=== PATIENT | male | born 1965 | race Caucasian/White ===

== ENCOUNTER 2016-11-08 11:06 | Inpatient (IN) | payer OTHER ==
--- NOTE | ~2016-11-08 | PA ---
Unit #: [id number] #: [id number] Patient: SHY MARINO [id number] [facility] [address] [place] [address] [id number] MR#: [id number] NAME: SHY MARINO ROOM: P174 Age: 51 Sex: M Admission Date: 11/08/2016 : 1965 Date of Assessment: 11/08/2016 Attending Physician: Eldon Camilo M.D. Admitting Physician: Eldon Camilo M.D. Primary Care Physician: Generic Doctor Not In System PSYCHIATRIC ASSESSMENT IDENTIFYING INFORMATION The patient is a 51-year-old white male admitted to the [address] [place] [address] for alcohol detox. INFORMANT(S) Patient. RELIABILITY Fair. CHIEF COMPLAINT Detox. HISTORY OF PRESENT ILLNESS The patient is a 51-year-old white male admitted after he had been found down at his apartment at the [facility]. The patient reports that he has been drinking half gallon of vodka on a daily basis and has been doing so for some time. He has an extensive substance abuse history, specifically alcohol. He has maintained sobriety for as many as 6 months but only while incarcerated. The patient reports approximately 5 years ago he lost his home and family and has been homeless and drinking ever since. His last stay at this hospital was in July 2015. He currently denies suicidal/homicidal ideation but is noted to be in extreme physical distress related to alcohol withdrawal. He is tremulous, flushed with elevation in pulse and blood pressure. His blood alcohol on admission at this facility yesterday was 325. He was sent out for medical clearance. PAST PSYCHIATRIC HISTORY As above. FAMILY HISTORY Noncontributory. SOCIAL HISTORY The patient currently resides at the [facility]. He is unemployed and is seeking disability. He reports substance use as noted previously. MEDICAL HISTORY Noncontributory. MEDICATION HISTORY None. Unit #: [id number] #: [id number] Patient: SHY MARINO ALLERGIES None. MENTAL STATUS EXAM At this time reveals the patient to be a disheveled white male appearing stated age. He is in significant physical distress and is noted to be quite tremulous and flushed during interview. He is awake, alert in all spheres. His mood is mildly dysphoric. His affect constricted. Speech is generally relevant and coherent. There are no gross deficits in memory or cognition noted. Intelligence is judged to be in the average range based on fund of knowledge. The patient is cooperative throughout the interview. He is currently denying suicidal/homicidal ideation or psychotic features. Judgement and insight appear to be intact. ASSETS AND LIABILITIES Patient's assets, motivation for change. Liabilities, lack of resources, chronicity of substance use. ADMITTING DIAGNOSIS Alcohol use disorder. PSYCHIATRIC PLAN/TREATMENT GOALS The patient remains hospitalized for safety and stabilization. Routine detoxification protocol for alcohol will be initiated. The patient will participate in appropriate palomino and milieu activities. DISCHARGE PLANNING Followup to take place through the auspices of community mental health resources. ESTIMATED LENGTH OF STAY Five to seven days. Dictated by... Eldon Camilo M.D. RIC/saulo TD: 11/08/2016 16:21 JOB #: [id number] PSYCHIATRIC ASSESSMENT Page 1 of 1 X Eldon Camilo MD X PSYCHIATRIC ASSESSMENT
--- NOTE | ~2016-11-08 | A ---
[facility] Nutrition Therapy DATE: 11/10/16 Patient: SHY MARINO Physician: OMAR Address: [address] [place] [address] #4 Room/Bed: [address], Zip: [place] [address] Admit Date: 11/08/16 Date of : [birth year] Height: 6 0 Weight: [phone] NUTRITIONAL ASSESSMENT: REASON: 2 NUTRITION RISK POINTS- UNINTENTIONAL WEIGHT LOSS, CHEWING/SWALLOWING DIFFICULTIES PATIENT ADMITTED FOR ETOH DETOX PMH: COPD, LONG HX ETOH ABUSE Anthropometrics: HT: 6'0", WT: 210#, BMI: 28.5, %IBW: 118 Labs: 11/09/16- BUN: 8, CREA: 0.5 Meds: DESYREL, DETOX PROTOCOL Assessment: PATIENT IS A 51 Y/O MALE ADMITTED FOR ETOH DETOX. PATIENT IS CURRENTLY UNEMPLOYED, LIVES AT THE [facility], SMOKES 2 PPD, AND DRINKS A 1/2 GALLON ETOH DAILY. PATIENT HAS A HX OF INPATIENT CHEMICAL DEPENDENCY TREATMENT. PATIENT STATED A POOR APPETITE WITH A 40# WEIGHT LOSS OVER LAST SEVERAL MONTHS. WEIGHT HX PER [employer] SHOWS A 10# WEIGHT LOSS OVER LAST 1.5 YEARS AND HIS UBW SEEMS TO BE AN AVERAGE OF ~210#. NURSING REPORTS GOOD PO INTAKES. PATIENT'S BMI IS ABOVE A HEALTHY RANGE OF 19-25, AND HE IS 118% OF HIS IBW. PATIENT IS ON A REGULAR DIET WITH NO DAIRY AND NO CAFFEINE. THERE ARE NO SKIN OR GI ISSUES NOTED ATT. PATIENT DOES NOT HAVE A HX OF CHEWING/SWALLOWING DIFFICULTIES, HE DOES NOT HAVE ANY C/O CHEWING/SWALLOWING DIFFICULTIES, AND HE IS TOLERATING A REGULAR DIET. Dx: NO NUTRITION DX Intervention: REGULAR DIET WITH NO DAIRY AND NO CAFFEINE, MEDS PER MD, PSYCH, DETOX Monitoring, Evaluation and Goals: 1. ADEQUATE PO INTAKES >50% OF MEALS 2. PREVENT, CORRECT MICRO/MACRO NUTRIENT DEFICIENCIES MONITOR: WEIGHTS, LABS, PO/FLUID INTAKES Recommendations: 1. CONTINUE REGULAR DIET WITH NO CAFFEINE AND NO DAIRY TOLERATED. 2. ENCOURAGE ADEQUATE PO AND FLUID INTAKES 3. IF PATIENT HAS C/O CHEWING/SWALLOWING DIFFICULTIES PLEASE CONSULT WINE CONSULTANT [facility] Nutrition Therapy DATE: 11/10/16 Patient: SHY MARINO Physician: OMAR Address: [address] [place] [address] #4 Room/Bed: P174-[address] [facility], Zip: [place] [address] Admit Date: 11/08/16 Date of : [birth year] Height: 6 0 Weight: [phone] TO F/U PER PROTOCOL AND PRN R/T PATIENT NOT AT NUTRITIONAL RISK ATT Respectfully, MARLEE CORBIN RD, LD [facility] cc: client file
--- NOTE | ~2016-11-08 | HP ---
Unit #: [id number] #: [id number] Patient: SHY MARINO [id number] [place] [address] [id number] MR#: [id number] NAME: SHY MARINO ROOM: P174 Age: 51 Sex: M Admission Date: 11/08/2016 : 1965 Attending Physician: Eldon Camilo M.D. Admitting Physician: Eldon Camilo M.D. Primary Care Physician: Jennifer Doctor Not In System HISTORY AND PHYSICAL HISTORY OF PRESENT ILLNESS Shy is a 51 year old admitted to [facility] because of his abuse of alcohol. He is detoxing. He has other admissions to this facility for treatment of the same. PAST MEDICAL HISTORY 1. Long history alcohol abuse. 2. COPD PAST SURGICAL HISTORY Left knee. ALLERGIES No known drug allergies. SOCIAL HISTORY Smokes less than one pack per day. Drinks a half of a gallon of vodka on a daily basis and denies illicit drug use. FAMILY HISTORY Medically noncontributory. REVIEW OF SYSTEMS CONSTITUTIONAL: No fever or chills. HEENT: Denies any sore throat, ear pain or runny nose. CARDIOVASCULAR: Denies chest pain, irregular heart rhythm or palpitations. CHEST: Denies shortness of breath or cough. No hemoptysis. GASTROINTESTINAL: Denies nausea, vomiting, diarrhea or chronic constipation. ENDOCRINE: Denies history of increased thirst or urination. No recent significant weight loss or gain. GENITOURINARY: Denies dysuria, frequency, or hematuria. SKIN: Denies any rashes. HEMATOLOGIC: Denies history of increased bleeding or bruising. MUSCULOSKELETAL: Denies any hot, swollen joints. No generalized muscle pain. NEUROLOGIC: Denies problems with vision or speech. No frequent, severe headaches. No numbness, tingling or weakness in any extremities. Denies loss of bladder or bowel control. CURRENT MEDICATIONS Detox protocol Unit #: [id number] #: [id number] Patient: SHY MARINO PHYSICAL EXAMINATION GENERAL: Alert, appearing much older than his stated age of 51, in no apparent distress. VITAL SIGNS: Blood pressure 132/98, heart rate 100, respirations 16, temperature 98.6. WEIGHT: 210 pounds. HEIGHT: 6'0". SKIN: Warm and dry without rash or lesion. HEENT: Normocephalic. TMs not viewed. Oral and nasal passages clear. Conjunctivae clear. Pupils equal, round and reactive to light and accommodation. Extraocular movements intact. NECK: Supple without lymphadenopathy or thyromegaly. HEART: Regular rate and rhythm without murmur. LUNGS: Clear. ABDOMEN: Soft, nontender. : Not done. EXTREMITIES: No evidence of cyanosis, clubbing or edema. Moves all extremities without focal deficit. NEUROLOGICAL: Grossly within normal limits. Cranial Nerves: II: Visual millard are intact. III, IV AND : Extraocular movements are intact. Pupils are equal, round and reactive to light. V: Facial sensation is grossly normal. VII: Facial movements and expression are normal. VIII: Auditory acuity grossly intact. IX, X: Uvula is midline. Phonation is normal. XI: Patient shrugs shoulders and turns head normally. XII: Tongue protrudes in the midline. Sensory and Motor Function: Sensory and motor sensation is grossly normal. Motor: moves all extremities well. Coordination: Gait is normal. Deep Tendon Reflexes: Intact. IMPRESSION Psychiatric admission RECOMMENDATIONS PSYCHIATRIC: Per psychiatrist. MEDICAL: I see no contraindications to participating in facility's activities. MEDICAL PROGNOSIS Good. MEDICAL CONDITION Stable. Dictated by... Germaine Sigala PCandelariaACandelaria-Fred. for Karla Jeffery/cesar TD: 11/08/2016 21:27 JOB #: [id number] Unit #: [id number] #: [id number] Patient: SHY MARINO HISTORY AND PHYSICAL Page 1 of 1 X Germaine Sigala HISTORY AND PHYSICAL
--- NOTE | ~2016-11-08 | CO ---
Unit #: [id number] #: [id number] Patient: SHY MARINO [id number] [place] [address] [id number] MR#: [id number] NAME: SHY MARINO ROOM: P174 Age: 51 Sex: M Admission Date: 11/08/2016 : 1965 Attending Physician: Eldon Camilo M.D. Primary Care Physician: Generic Doctor Not In System Consultation Date: 11/09/2016 CONSULTATION REPORT SUBJECTIVE Shy has history of COPD. At time of admission, he was provided albuterol and Spiriva inhaler. Dictated by... Germaine Sigala PCandelariaACandelaria-Mansi for Karla Jeffery/fercho TD: 11/18/2016 05:02 JOB #: [id number] CONSULTATION REPORT Page 1 of 1 X Germaine Sigala X CONSULTATION REPORT
--- NOTE | ~2016-11-08 | DS ---
Unit #: [id number] #: [id number] Patient: SHY VASQUEZ [id number] [facility] [address] [place] [address] [id number] MR#: [id number] NAME: SHY VASQUEZ ROOM: P174 Age: 51 Sex: M Admission Date: 11/08/2016 : 1965 Discharge Date: 11/10/2016 Attending Physician: Eldon Camilo M.D. Primary Care Physician: Generic Doctor Not In System DISCHARGE SUMMARY REASON FOR ADMISSION Mr. Vasquez is a 51-year-old man, who was found intoxicated at his apartment, [facility] and brought here for detox. He denied suicidal ideation, and was medically cleared at the emergency room due to physical distress prior to admission. LABORATORY DATA Please see hospital chart. HOSPITAL COURSE The patient was admitted and placed on the alcohol detox protocol. He had an uneventful period of inpatient detox, and his inhaler was continued. He had no further suicidal ideation, intent, or plan. On the date of discharge, he contracted for safety in the outpatient setting. DISCHARGE DIAGNOSES [place] I: Alcohol dependence with withdrawal, uncomplicated. [place] II: No diagnosis. [place] III: History of asthma. BODY AFTER AXIS DISCHARGE INSTRUCTIONS The patient to follow up with [facility] and primary care physician. DISCHARGE MEDICATIONS None. CONDITION AT DISCHARGE Fair. PROGNOSIS Fair. DIET Ad mariam. ACTIVITY Ad mariam. Unit #: [id number] #: [id number] Patient: SHY VASQUEZ Dictated by... Tayo Gonzalez M.D. /fercho TD: 01/18/2017 14:06 JOB #: [id number] DISCHARGE SUMMARY Page 1 of 1 X Tayo Gonzalez MD X DISCHARGE SUMMARY
[2016-11-09 09:44] LABS: BASOPHIL% 0.8 % (0-2.5); EOSINOPHIL# 0.1 X10e3 (0-0.7); EOSINOPHIL% 3.2 % (0.0-7.0); HEMATOCRIT 43.3 % (38.0-50.0); HEMOGLOBIN 14.2 gm/dL (13.0-16.0); LYMPHOCYTE# 0.6 X10e3 (1.0-3.5); LYMPHOCYTE% 36.9 % (17.0-45.0); MEAN CELL VOLUME 98.7 FL (83-96); MEAN CORPUSCULAR HEMOGLOBIN 32.5 PG (28-34); MEAN CORPUSCULAR HGB CONC 32.9 g/dL (30-36); MEAN PLATELET VOLUME 8.8 FL (6.5-11.5); MONOCYTE# 0.3 X10e3 (0-1.0); MONOCYTE% 17.2 % (3.0-12.0); NEUTROPHIL# 0.7 X10e3 (1.5-7.1); NEUTROPHIL% 41.9 % (40-75); PLATELET COUNT 63 X10e3 (140-420); RED BLOOD COUNT 4.39 X10e (3.90-5.60); RED CELL DISTRIBUTION WIDTH 18.1 % (11.0-15.5); WHITE BLOOD COUNT 1.6 X10e3 (4.0-10.5)
[2016-11-09 09:46] LABS: URINE APPEARANCE CLOUDY; URINE BILIRUBIN NEG (NEG); URINE BLOOD NEG (NEG); URINE COLOR DK YELLOW; URINE GLUCOSE NEG (NEG); URINE KETONE TRACE (NEG); URINE LEUKOCYTE ESTERASE NEG (NEG); URINE NITRATE NEG (NEG); URINE PH 7.5 (5-8); URINE PROTEIN NEG (NEG); URINE SPECIFIC GRAVITY 1.017 (1.003-1.035)
[2016-11-09 10:35] LABS: DIFF IND YES
[2016-11-09 10:42] LABS: AMPHETAMINE NEG (NEG); BARBITURATES NEG (NEG); BENZODIAZEPINES NEG (NEG); COCAINE NEG (NEG); MARIJUANA NEG (NEG); OPIATES NEG (NEG); TRICYCLIC ANTIDEPRESSANTS NEG (NEG); U METHADONE NEG (NEG)
[2016-11-09 10:58] LABS: ALBUMIN SERUM 3.7 g/dL (3.5-5.0); BILIRUBIN,TOTAL 1.1 mg/dL (0.2-2.0); CALCIUM SERUM 9.1 mg/dL (8.4-10.2); CREATININE SERUM 0.5 mg/dL (0.6-1.4); GLOM FILT RATE Estimated 125.5 mL/min (>60); PROTEIN TOTAL SERUM 6.3 g/dL (6.0-8.3)
[2016-11-09 11:02] LABS: PLATELET ESTIMATE DECREASED (NORMAL)
[2016-11-09 11:03] LABS: ANISOCYTOSIS MOD; HYPOCHROMIA SL; TARGET CELLS SL
[2016-11-09 13:28] LABS: FREE THYROXIN (T4) 0.93 ng/dL (0.58-1.64)
== END 2016-11-10 15:20 | disposition left against medical advice (07) | DRG 894 ==
LOC: P1E 11:06
PROVIDERS: Specialist
PROC: HZ2ZZZZ Detoxification Services for Substance Abuse Treatment (ICD-10-PCS; principal; 2016-11-08)
DX: F10.20 Alcohol dependence, uncomplicated (principal); J44.9 Chronic obstructive pulmonary disease, unspecified; F17.210 Nicotine dependence, cigarettes, uncomplicated
CPT/HCPCS: 80053; 80307; 81003; 84132; 84439; 84443; 85025; 86592